=== PATIENT | female | born 1965 | race American Indian/Alaskan Native ===

== ENCOUNTER 2017-12-04 20:17 | Inpatient (IN) | payer OTHER ==
[2017-12-04 21:06] LABS: Hematocrit 33.6 % (30.3-42.9); Hemoglobin 10.9 gm/dl (10.1-14.3); Lymphocytes % (Auto) 24.3 % (13.4-35.0); Mean Corpuscular HGB Conc 33 % (30-34); Mean Corpuscular Hemoglobin 30 pg (28-32); Mean Corpuscular Volume 93 fl (79-97); Platelet Count 232 K/mm3 (140-440); Red Blood Count 3.62 M/mm3 (3.65-5.03)
[2017-12-04 21:07] LABS: Basophils # (Auto) 0.1 K/mm3 (0.0-0.1); Basophils % (Auto) 0.8 % (0.0-1.8); Eosinophils # (Auto) 0.2 K/mm3 (0.0-0.4); Eosinophils % (Auto) 2.5 % (0.0-4.3); Lymphocytes # (Auto) 1.5 K/mm3 (1.2-5.4); Monocytes # (Auto) 0.9 K/mm3 (0.0-0.8); Monocytes % (Auto) 14.4 % (0.0-7.3)
[2017-12-04 21:23] LABS: BUN/Creatinine Ratio 10; Blood Urea Nitrogen 9 mg/dL (7-17); Calcium 9.1 mg/dL (8.4-10.2); Hemolysis Index 18
[2017-12-04 22:05] LABS: Bacteria,Urine 1+ /HPF (Negative); Bilirubin,Urine NEG (Negative); Blood,Urine MOD (Negative); Color,Urine Yellow (Yellow); Mucus,Urine FEW /HPF; Nitrite,Urine NEG (Negative); Protein,Urine <15 mg/dL mg/dL (Negative); Urobilinogen,Urine < 2.0 mg/dL (<2.0); WBC,Urine < 1.0 /HPF (0.0-6.0)
[2017-12-04 22:10] LABS: Amphetamine Screen,Urine PRESUMPTIVE NEGATIVE; Cannabinoid Screen,Urine PRESUMPTIVE NEGATIVE; Cocaine Screen,Urine PRESUMPTIVE NEGATIVE; Opiate Screen,Urine PRESUMPTIVE NEGATIVE
[2017-12-04] MEDS ORDERED: NARCAN 0.4 MG/1 ML IV ONE (22:23)
[2017-12-04] MEDS ORDERED: NARCAN 0.4 MG/1 ML IV PRN (22:24)
[2017-12-04 22:29] LABS: Benzodiazepines Screen,Urine PRESUMPTIVE POSITIVE; Methadone Screen,Urine PRESUMPTIVE NEGATIVE
--- NOTE | 2017-12-04 22:31 | Emergency Department Report ---
History of Present Illness - General Chief Complaint: Overdose Stated Complaint: AMS/OD Time Seen by Provider: 12/04/17 21:39 Source: EMS Mode of arrival: Stretcher Limitations: Altered Mental Status - History of Present Illness Initial Comments: 52-year-old female with a past medical history of previous opiate overdoses in the past presents to the hospital with possible overdose. EMS found patient or only responsive to painful stimuli with a respiratory rate of 8. She was given intranasal Narcan 2 mg and became responsive to verbal and tactile stimulation by easy falls back to sleep with a respiratory rate of 16 upon arrival. Patient apparently was at [facility] 3 days ago for overdose of oxycodone. Mental health hatchery supervisor spoke to patient's sister who states she has a history of suicidal attempts in the past. Patient is drowsy and able to provide any history of present illness. Additional Narcan ordered - Related Data Home Medications Medication Instructions Recorded Confirmed Last Taken Oxymorphone HCl [Oxymorphone HCl 20 mg PO BID 03/16/14 07/05/16 Unknown ER] Baclofen 30 mg PO TID PRN 07/05/16 07/05/16 Unknown Citalopram Hydrobromide [celeXA] 30 mg PO QDAY 07/05/16 07/05/16 Unknown Gabapentin [Neurontin] 800 mg PO Q6H 07/05/16 07/05/16 Unknown Levothyroxine Sodium [Synthroid] 175 mcg PO QDAY 07/05/16 07/05/16 Unknown Meloxicam [Mobic] 7.5 mg PO QDAY 07/05/16 07/05/16 Unknown Temazepam 30 mg PO QHS 07/05/16 07/05/16 Unknown Allergies Allergy/AdvReac Type Severity Reaction Status Date / Time No Known Allergies Allergy Verified 07/05/16 20:27 ED Review of Systems ROS: Stated complaint: AMS/OD Other details as noted in HPI Comment: Unobtainable due to pts medical conditions ED Past Medical Hx - Past Medical History Hx Hypertension: Yes Hx Arthritis: Yes Hx Psychiatric Treatment: Yes (Depression) Additional medical history: Thyroid?; Back Problems - Social History Smoking Status: Current Every Day Smoker Substance Use Type: Alcohol - Medications Home Medications: Home Medications Medication Instructions Recorded Confirmed Last Taken Type Oxymorphone HCl [Oxymorphone HCl 20 mg PO BID 03/16/14 07/05/16 Unknown History ER] Baclofen 30 mg PO TID PRN 07/05/16 07/05/16 Unknown History Citalopram Hydrobromide [celeXA] 30 mg PO QDAY 07/05/16 07/05/16 Unknown History Gabapentin [Neurontin] 800 mg PO Q6H 07/05/16 07/05/16 Unknown History Levothyroxine Sodium [Synthroid] 175 mcg PO QDAY 07/05/16 07/05/16 Unknown History Meloxicam [Mobic] 7.5 mg PO QDAY 07/05/16 07/05/16 Unknown History Temazepam 30 mg PO QHS 07/05/16 07/05/16 Unknown History ED Physical Exam - General Limitations: Altered Mental Status - Other Other exam information: General: Lethargic Head exam: Atraumatic, normocephalic Eyes exam: Normal appearance, pupils equal reactive to light ENT: Moist mucous membrane Neck exam: Normal inspection Respiratory exam: Respiratory rate 78 Cardiovascular: Normal rate and rhythm, normal heart sounds Abdomen: Soft, nondistended, and nontender, with normal bowel sounds, no rebound, or guarding Extremity: Full range of motion normal inspection no deformity Back: Normal Inspection, full range of motion, no tenderness Neurologic: Obtunded, opens eyes to painful stimuli (sternal rub) but does not follow commands or was drawn to needle sticks. Psychiatric: normal affect, normal mood Skin: Warm, dry, intact ED Course Vital Signs 12/04/17 20:57 Temperature 98.2 F Pulse Rate 99 H Respiratory 16 Rate Blood Pressure 133/81 [Left] O2 Sat by Pulse 97 Oximetry - Reevaluation(s) Reevaluation #1: 12/04/17 23:20 additional narcan ordered and awaiting administration. . . EKg pending Reevaluation #2: 12/04/17 23:37 no response to narcan .4mg, repeat doses pending ED Medical Decision Making - Lab Data Result diagrams: 12/04/17 20:49 12/04/17 20:49 Lab Results 12/04/17 12/04/17 12/04/17 Range/Units 20:49 20:49 20:49 WBC (4.5-11.0) K/mm3 RBC (3.65-5.03) M/mm3 Hgb (10.1-14.3) gm/dl Hct (30.3-42.9) % MCV (79-97) fl MCH (28-32) pg MCHC (30-34) % RDW (13.2-15.2) % Plt Count (140-440) K/mm3 Lymph % (Auto) (13.4-35.0) % [place] % (Auto) (0.0-7.3) % Eos % (Auto) (0.0-4.3) % Baso % (Auto) (0.0-1.8) % Lymph # (1.2-5.4) K/mm3 [place] # (0.0-0.8) K/mm3 Eos # (0.0-0.4) K/mm3 Baso # (0.0-0.1) K/mm3 Seg Neutrophils % (40.0-70.0) % Seg Neutrophils # (1.8-7.7) K/mm3 Sodium 137 (137-145) mmol/L Potassium 2.8 L* (3.6-5.0) mmol/L Chloride 96.9 L (98-107) mmol/L Carbon Dioxide 25 (22-30) mmol/L Anion Gap 18 mmol/L BUN 9 (7-17) mg/dL Creatinine 0.9 (0.7-1.2) mg/dL Estimated GFR > 60 ml/min BUN/Creatinine Ratio 10 % Glucose 140 H (65-100) mg/dL Calcium 9.1 (8.4-10.2) mg/dL Magnesium (1.7-2.3) mg/dL Urine Color (Yellow) Urine Turbidity (Clear) Urine pH (5.0-7.0) Ur Specific [place] (1.003-1.030) Urine Protein (Negative) mg/dL Urine Glucose (UA) (Negative) mg/dL Urine Ketones (Negative) mg/dL Urine Blood (Negative) Urine Nitrite (Negative) Urine Bilirubin (Negative) Urine Urobilinogen (<2.0) mg/dL Ur Leukocyte Esterase (Negative) Urine WBC (Auto) (0.0-6.0) /HPF Urine RBC (Auto) (0.0-6.0) /HPF U Epithel Cells (Auto) (0-13.0) /HPF Urine Bacteria (Auto) (Negative) /HPF Urine Mucus /HPF Salicylates < 0.3 L (2.8-20.0) mg/dL Urine Opiates Screen Urine Methadone Screen Acetaminophen 15.0 (10.0-30.0) ug/mL Ur Barbiturates Screen Ur Phencyclidine Scrn Ur Amphetamines Screen U Benzodiazepines Scrn Urine Cocaine Screen U Marijuana (THC) Screen Drugs of Abuse Note Plasma/Serum Alcohol (0-0.07) % 12/04/17 12/04/17 12/04/17 Range/Units 20:49 20:49 21:47 WBC 6.2 (4.5-11.0) K/mm3 RBC 3.62 L (3.65-5.03) M/mm3 Hgb 10.9 (10.1-14.3) gm/dl Hct 33.6 (30.3-42.9) % MCV 93 (79-97) fl MCH 30 (28-32) pg MCHC 33 (30-34) % RDW 16.0 H (13.2-15.2) % Plt Count 232 (140-440) K/mm3 Lymph % (Auto) 24.3 (13.4-35.0) % [place] % (Auto) 14.4 H (0.0-7.3) % Eos % (Auto) 2.5 (0.0-4.3) % Baso % (Auto) 0.8 (0.0-1.8) % Lymph # 1.5 (1.2-5.4) K/mm3 [place] # 0.9 H (0.0-0.8) K/mm3 Eos # 0.2 (0.0-0.4) K/mm3 Baso # 0.1 (0.0-0.1) K/mm3 Seg Neutrophils % 58.0 (40.0-70.0) % Seg Neutrophils # 3.6 (1.8-7.7) K/mm3 Sodium (137-145) mmol/L Potassium (3.6-5.0) mmol/L Chloride (98-107) mmol/L Carbon Dioxide (22-30) mmol/L Anion Gap mmol/L BUN (7-17) mg/dL Creatinine (0.7-1.2) mg/dL Estimated GFR ml/min BUN/Creatinine Ratio % Glucose (65-100) mg/dL Calcium (8.4-10.2) mg/dL Magnesium (1.7-2.3) mg/dL Urine Color Yellow (Yellow) Urine Turbidity Clear (Clear) Urine pH 6.0 (5.0-7.0) Ur Specific [place] 1.017 (1.003-1.030) Urine Protein <15 mg/dl (Negative) mg/dL Urine Glucose (UA) Neg (Negative) mg/dL Urine Ketones Neg (Negative) mg/dL Urine Blood Mod (Negative) Urine Nitrite Neg (Negative) Urine Bilirubin Neg (Negative) Urine Urobilinogen < 2.0 (<2.0) mg/dL Ur Leukocyte Esterase Neg (Negative) Urine WBC (Auto) < 1.0 (0.0-6.0) /HPF Urine RBC (Auto) 2.0 (0.0-6.0) /HPF U Epithel Cells (Auto) < 1.0 (0-13.0) /HPF Urine Bacteria (Auto) 1+ (Negative) /HPF Urine Mucus Few /HPF Salicylates (2.8-20.0) mg/dL Urine Opiates Screen Urine Methadone Screen Acetaminophen (10.0-30.0) ug/mL Ur Barbiturates Screen Ur Phencyclidine Scrn Ur Amphetamines Screen U Benzodiazepines Scrn Urine Cocaine Screen U Marijuana (THC) Screen Drugs of Abuse Note Plasma/Serum Alcohol < 0.01 (0-0.07) % 12/04/17 12/04/17 Range/Units 21:47 21:57 WBC (4.5-11.0) K/mm3 RBC (3.65-5.03) M/mm3 Hgb (10.1-14.3) gm/dl Hct (30.3-42.9) % MCV (79-97) fl MCH (28-32) pg MCHC (30-34) % RDW (13.2-15.2) % Plt Count (140-440) K/mm3 Lymph % (Auto) (13.4-35.0) % [place] % (Auto) (0.0-7.3) % Eos % (Auto) (0.0-4.3) % Baso % (Auto) (0.0-1.8) % Lymph # (1.2-5.4) K/mm3 [place] # (0.0-0.8) K/mm3 Eos # (0.0-0.4) K/mm3 Baso # (0.0-0.1) K/mm3 Seg Neutrophils % (40.0-70.0) % Seg Neutrophils # (1.8-7.7) K/mm3 Sodium (137-145) mmol/L Potassium (3.6-5.0) mmol/L Chloride (98-107) mmol/L Carbon Dioxide (22-30) mmol/L Anion Gap mmol/L BUN (7-17) mg/dL Creatinine (0.7-1.2) mg/dL Estimated GFR ml/min BUN/Creatinine Ratio % Glucose (65-100) mg/dL Calcium (8.4-10.2) mg/dL Magnesium 2.20 (1.7-2.3) mg/dL Urine Color (Yellow) Urine Turbidity (Clear) Urine pH (5.0-7.0) Ur Specific [place] (1.003-1.030) Urine Protein (Negative) mg/dL Urine Glucose (UA) (Negative) mg/dL Urine Ketones (Negative) mg/dL Urine Blood (Negative) Urine Nitrite (Negative) Urine Bilirubin (Negative) Urine Urobilinogen (<2.0) mg/dL Ur Leukocyte Esterase (Negative) Urine WBC (Auto) (0.0-6.0) /HPF Urine RBC (Auto) (0.0-6.0) /HPF U Epithel Cells (Auto) (0-13.0) /HPF Urine Bacteria (Auto) (Negative) /HPF Urine Mucus /HPF Salicylates (2.8-20.0) mg/dL Urine Opiates Screen Presumptive negative Urine Methadone Screen Presumptive negative Acetaminophen (10.0-30.0) ug/mL Ur Barbiturates Screen Presumptive negative Ur Phencyclidine Scrn Presumptive negative Ur Amphetamines Screen Presumptive negative U Benzodiazepines Scrn Presumptive positive Urine Cocaine Screen Presumptive negative U Marijuana (THC) Screen Presumptive negative Drugs of Abuse Note Disclamer Plasma/Serum Alcohol (0-0.07) % - EKG Data -: EKG Interpreted by Al EKG shows normal: sinus rhythm, axis (16), QRS complexes (85), ST-T waves ( nospecific t abnl) Rate: normal (93) - EKG Data When compared to previous EKG there are: no significant change (04/24/13) - Radiology Data Radiology results: report reviewed (ct head: naf) - Medical Decision Making Altered mental status History of recent oxycodone overdose. UDS negative for opioids but positive for benzos and marijuana Patient did have response to Narcan in the field therefore opioid overdose still likely CT head without acute findings 1013 form based on sister's history Patient will be admitted due to persistent lethargy in the setting of possible intentional overdose - Differential Diagnosis accidental overdose, intentional overdose, ICH Critical Care Time: No Critical care attestation.: If time is entered above; I have spent that time in minutes in the direct care of this critically ill patient, excluding procedure time. ED Disposition Clinical Impression: Overdose, Hypokalemia Disposition: OP ADMIT IP TO THIS HOSP Is pt being admited?: Yes Condition: Stable Time of Disposition: 23:24 (Dr perdue/hosp)
--- NOTE | 2017-12-04 23:15 | Cat Scan Report ---
FINAL REPORT PROCEDURE: CT HEAD/BRAIN WO CON TECHNIQUE: Computerized tomography of the head was performed without contrast material. HISTORY: Altered mental status. Possible overdose COMPARISON: Prior CT scan of the brain 07/05/2016 FINDINGS: Brain: Brain density appears normal. No evidence of intracranial hemorrhage. No parenchymal hemorrhage, mass lesions or mass effect are seen. No abnormal extraxial fluid collects or masses are seen. Nonspecific mineralization of the basal ganglia again visualized. Ventricles: Ventricles are normal size and are midline. Bone Windows: No evidence of skull fracture. Paranasal sinuses: Visualized portions appear clear. Mastoid air cells: Clear IMPRESSION: Negative exam. No acute intracranial abnormalities are identified
[2017-12-04] MEDS ORDERED: KCL 10MEQ/100ML 10 MEQ/100 ML BAG IV SCH (23:45)
--- NOTE | 2017-12-04 23:57 | History and Physical Report ---
History of Present Illness Date of examination: 12/04/17 History of present illness: 52-year-old with a history of hypertension, depression, chronic pain was brought to the emergency room because she was found decrease responsiveness by family. She was given Narcan in the field and in the emergency room without much improvement. she seen at [facility] 3 days ago for overdose, the patient was discharged to home. Her review of system is unobtainable PAST MEDICAL HISTORY:hypertension, depression, chronic pain PAST SURGICAL HISTORY: Unknown FAMILY HISTORY:Unknown SOCIAL HISTORY:Unknown Medications and Allergies Allergies Allergy/AdvReac Type Severity Reaction Status Date / Time No Known Allergies Allergy Verified 07/05/16 20:27 Home Medications Medication Instructions Recorded Confirmed Last Taken Type Oxymorphone HCl [Oxymorphone HCl 20 mg PO BID 03/16/14 07/05/16 Unknown History ER] Baclofen 30 mg PO TID PRN 07/05/16 07/05/16 Unknown History Citalopram Hydrobromide [celeXA] 30 mg PO QDAY 07/05/16 07/05/16 Unknown History Gabapentin [Neurontin] 800 mg PO Q6H 07/05/16 07/05/16 Unknown History Levothyroxine Sodium [Synthroid] 175 mcg PO QDAY 07/05/16 07/05/16 Unknown History Meloxicam [Mobic] 7.5 mg PO QDAY 07/05/16 07/05/16 Unknown History Temazepam 30 mg PO QHS 07/05/16 07/05/16 Unknown History Active Meds: Active Medications Potassium Chloride 10 meq/ (Sodium Chloride) 105 mls @ 105 mls/hr IV Q1H NATHANIEL Stop: 12/05/17 03:44 Naloxone HCl (Narcan 0.4 Mg/1 Ml) 0.4 mg IV Q2MIN PRN PRN Reason: Res Rate </= 8 or 02 SAT < 92% Exam - Physical Exam Narrative exam: Gen. appearance: Patient lying in bed in no acute distress HEENT: Normocephalic/atraumatic, pupils equal round reactive to light, extra occular movement intact, no scleral icterus, no JVD or thyromegaly or nodule, neck is supple, mucous membrane moist, no erythema or exudate Heart: S1-S2, regular rate and rhythm Lungs: Clear to auscultation bilateral breathing comfortable Abdomen: Positive bowel sounds, nontender, nondistended, no organomegaly Extremities: No edema, cyanosis, clubbing Neuro:: Difficult to assess Skin: No rash, nodules, warm dry - Constitutional Vitals: Temp Pulse Resp BP Pulse Ox 98.2 F 99 H 16 133/81 97 12/04/17 20:57 12/04/17 20:57 12/04/17 20:57 12/04/17 20:57 12/04/17 20:57 Results - Labs CBC & Chem 7: 12/04/17 20:49 12/04/17 20:49 Labs: Abnormal lab results 12/04/17 12/04/17 12/04/17 Range/Units 20:49 20:49 20:49 RBC 3.62 L (3.65-5.03) M/mm3 RDW 16.0 H (13.2-15.2) % [place] % (Auto) 14.4 H (0.0-7.3) % [place] # 0.9 H (0.0-0.8) K/mm3 Potassium 2.8 L* (3.6-5.0) mmol/L Chloride 96.9 L (98-107) mmol/L Glucose 140 H (65-100) mg/dL Salicylates < 0.3 L (2.8-20.0) mg/dL - Imaging and Cardiology CT Scan - head: report reviewed Assessment and Plan Assessment Drug overdose, possible suicide Hypokalemia Depression Chronic pain Plan Admit to medicine Start IV fluids, consult site, monique Larios'zoey 1013 While potassium levels DVT prophylaxis
[2017-12-05] MEDS: KCL 10 MEQ in NACL 0.9% 100 ML IV SCH ×4 (01:10→05:27)
[2017-12-05] MEDS ORDERED: MILK OF MAGNESIA PO PRN (04:29)
[2017-12-05] MEDS ORDERED: DULCOLAX PR PRN (04:29)
[2017-12-05] MEDS ORDERED: ZOFRAN IV PRN (04:29)
[2017-12-05] MEDS ORDERED: ZOSYN/NS 4.5GM/100ML 4.5 GM/100 ML VIAL IV SCH (06:00)
[2017-12-05] MEDS ORDERED: BACLOFEN PO PRN (06:58)
[2017-12-05] MEDS ORDERED: NON-FORMULARY (Gabapentin [Neurontin] 800 MG) PO SCH (07:00)
[2017-12-05] MEDS ORDERED: LEVOTHYROXINE SODIUM 175 MCG PO SCH (10:00)
[2017-12-05] MEDS ORDERED: celeXA PO SCH (10:00)
[2017-12-05] MEDS ORDERED: LOVENOX SUB-Q SCH (10:00)
[2017-12-05] MEDS: LOVENOX SUB-Q SCH (10:59)
[2017-12-05] MEDS: celeXA PO SCH (10:59)
[2017-12-05] MEDS: NEURONTIN PO SCH ×3 (11:10→23:39)
[2017-12-05] MEDS: TYLENOL PO PRN (11:11)
[2017-12-05] MEDS: SYNTHROID PO SCH ×3 (12:42→13:22)
[2017-12-05 13:41] LABS: BUN/Creatinine Ratio 11; Blood Urea Nitrogen 8 mg/dL (7-17); Hemolysis Index 159
[2017-12-05] MEDS ORDERED: K-DUR PO ONE ×2 (14:33→18:00)
--- NOTE | 2017-12-05 14:33 | Progress Note ---
Assessment and Plan Toxic encephalopathy - mental status at baseline now - likely from narcotic overdose Drug overdose, possible suicidal attempt - place on 1013, consult psych - mental status at baseline now Hypokalemia - cont to replete and monitor Depression - resume home meds hypothyroidism - cont on synthroid Chronic pain - percocet as needed Brief history: 52-year-old with a history of depression, chronic pain was brought to the emergency room because she was noted with decrease responsiveness by family. She was given Narcan in the field and in the emergency room without much improvement. She seen at [facility] 3 days ago for overdose, the patient was discharged to home on last weekend. Subjective Date of service: 12/05/17 Interval history: pt seen and examined stated that she was hurting on her back more than usual and thats why she took couple extra pain pills discussed with her sister at bedside Objective - Constitutional General appearance: Present: no acute distress, well-nourished - EENT Eyes: PERRL, EOM intact ENT: hearing intact, clear oral mucosa Ears: bilateral: normal - Neck Neck: supple, normal ROM - Respiratory Respiratory effort: normal Respiratory: bilateral: CTA - Cardiovascular Rhythm: regular Heart Sounds: Present: S1 & S2. Absent: gallop, rub Extremities: pulses intact, No edema, normal color, Full ROM - Gastrointestinal General gastrointestinal: Present: soft, non-tender, non-distended, normal bowel sounds - Integumentary Integumentary: clear, warm, dry - Musculoskeletal Musculoskeletal: 1, strength equal bilaterally - Neurologic Neurologic: moves all extremities - Psychiatric Psychiatric: memory intact, appropriate mood/affect, intact judgment & insight - Labs CBC & Chem 7: 12/06/17 06:41 12/06/17 06:41 Labs: Abnormal lab results 12/04/17 12/04/17 12/04/17 Range/Units 20:49 20:49 20:49 RBC 3.62 L (3.65-5.03) M/mm3 RDW 16.0 H (13.2-15.2) % [place] % (Auto) 14.4 H (0.0-7.3) % [place] # 0.9 H (0.0-0.8) K/mm3 Potassium 2.8 L* (3.6-5.0) mmol/L Chloride 96.9 L (98-107) mmol/L Glucose 140 H (65-100) mg/dL Salicylates < 0.3 L (2.8-20.0) mg/dL 12/05/17 Range/Units 12:50 RBC (3.65-5.03) M/mm3 RDW (13.2-15.2) % [place] % (Auto) (0.0-7.3) % [place] # (0.0-0.8) K/mm3 Potassium 3.5 L D (3.6-5.0) mmol/L Chloride (98-107) mmol/L Glucose 155 H (65-100) mg/dL Salicylates (2.8-20.0) mg/dL
[2017-12-06] MEDS: SYNTHROID PO SCH ×2 (05:01)
[2017-12-06] MEDS: NEURONTIN PO SCH ×4 (05:03→23:03)
[2017-12-06] MEDS: TYLENOL PO PRN ×2 (05:03→14:12)
[2017-12-06 07:13] LABS: Basophils % (Auto) 0.6 % (0.0-1.8); Eosinophils # (Auto) 0.2 K/mm3 (0.0-0.4); Eosinophils % (Auto) 4.2 % (0.0-4.3); Hematocrit 31.9 % (30.3-42.9); Hemoglobin 10.7 gm/dl (10.1-14.3); Lymphocytes # (Auto) 1.8 K/mm3 (1.2-5.4); Lymphocytes % (Auto) 34.7 % (13.4-35.0); Mean Corpuscular HGB Conc 34 % (30-34); Mean Corpuscular Hemoglobin 31 pg (28-32); Mean Corpuscular Volume 91 fl (79-97); Monocytes # (Auto) 0.5 K/mm3 (0.0-0.8); Monocytes % (Auto) 9.7 % (0.0-7.3); Platelet Count 260 K/mm3 (140-440); Red Blood Count 3.51 M/mm3 (3.65-5.03); Red Cell Distribution Width 15.6 % (13.2-15.2)
[2017-12-06 07:33] LABS: BUN/Creatinine Ratio 14; Blood Urea Nitrogen 10 mg/dL (7-17); Calcium 8.5 mg/dL (8.4-10.2); Hemolysis Index 3
[2017-12-06] MEDS: LOVENOX SUB-Q SCH (10:13)
[2017-12-06] MEDS: celeXA PO SCH (10:13)
[2017-12-06] MEDS ORDERED: K-DUR PO SCH (15:00)
--- NOTE | 2017-12-06 16:35 | Progress Note ---
Assessment and Plan Toxic encephalopathy - mental status at baseline now - likely from narcotic overdose Drug overdose, possible suicidal attempt - place on 1013, consult psych - mental status at baseline now Hypokalemia - cont to replete and monitor Depression - resume home meds hypothyroidism - cont on synthroid Chronic pain - percocet as needed Disposition: per psych, patient is medically clear for discharge Brief history: 52-year-old with a history of depression, chronic pain was brought to the emergency room because she was noted with decrease responsiveness by family. She was given Narcan in the field and in the emergency room without much improvement. She seen at [facility] 3 days ago for overdose, the patient was discharged to home on last weekend. Subjective Date of service: 12/06/17 Interval history: pt seen and examined stated that she was hurting on her back more than usual and thats why she took couple extra pain pills patient denies any suicidal ideation, pain now controlled with as needed percocet Objective - Constitutional Vitals: Vital Signs - 12hr 12/06/17 08:50 O2 Sat by Pulse 100 Oximetry - Labs CBC & Chem 7: 12/06/17 06:41 12/07/17 05:30 Labs: Abnormal lab results 12/06/17 12/06/17 Range/Units 06:41 06:41 RBC 3.51 L (3.65-5.03) M/mm3 RDW 15.6 H (13.2-15.2) % [place] % (Auto) 9.7 H (0.0-7.3) % Potassium 3.0 L (3.6-5.0) mmol/L Glucose 110 H (65-100) mg/dL
[2017-12-06] MEDS: PERCOCET 5/325 PO PRN ×2 (17:07→23:03)
[2017-12-06] MEDS: K-DUR PO SCH (17:32)
[2017-12-07] MEDS: NEURONTIN PO SCH ×3 (05:30→18:02)
[2017-12-07] MEDS: PERCOCET 5/325 PO PRN ×3 (05:31→18:02)
[2017-12-07] MEDS: SYNTHROID PO SCH ×2 (05:31)
[2017-12-07] MEDS: NACL 0.9% 1000 ML 1,000 ML IV SCH (06:05)
[2017-12-07 06:31] LABS: BUN/Creatinine Ratio 13; Blood Urea Nitrogen 8 mg/dL (7-17); Calcium 8.8 mg/dL (8.4-10.2); Hemolysis Index 12
[2017-12-07] MEDS: celeXA PO SCH (11:15)
[2017-12-07] MEDS: LOVENOX SUB-Q SCH (11:15)
[2017-12-07] MEDS: K-DUR PO SCH (11:15)
--- NOTE | 2017-12-07 12:17 | Progress Note ---
Assessment and Plan Toxic encephalopathy - mental status at baseline now - likely from narcotic overdose Drug overdose, possible suicidal attempt - place on 1013, consult psych - mental status at baseline now - psych eval pending Hypokalemia - repleted and resolved Depression - resume home meds hypothyroidism - cont on synthroid Chronic pain - percocet as needed Disposition: per psych, patient is medically clear for discharge Brief history: 52-year-old with a history of depression, chronic pain was brought to the emergency room because she was noted with decrease responsiveness by family. She was given Narcan in the field and in the emergency room without much improvement. She seen at [facility] 3 days ago for overdose, the patient was discharged to home on last weekend. Subjective Date of service: 12/07/17 Interval history: pt seen and examined stated that she was hurting on her back more than usual and thats why she took couple extra pain pills patient denies any suicidal ideation, pain now controlled with as needed percocet psych eval pending, sitter in front of the room Objective - Constitutional Vitals: Vital Signs - 12hr 12/07/17 12/07/17 12/07/17 03:47 07:56 08:04 Temperature 98.7 F 98.8 F Pulse Rate 92 H 115 H 111 H Respiratory 18 16 Rate Blood Pressure 143/83 120/59 O2 Sat by Pulse 97 98 Oximetry - Labs CBC & Chem 7: 12/06/17 06:41 12/07/17 05:30 Labs: Abnormal lab results 12/07/17 Range/Units 05:30 Creatinine 0.6 L (0.7-1.2) mg/dL Glucose 123 H (65-100) mg/dL
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
[2017-12-07] MEDS: MINIPRESS PO SCH (22:51)
[2017-12-07] MEDS: DESYREL PO SCH (22:52)
[2017-12-08] MEDS: PERCOCET 5/325 PO PRN ×4 (00:23→17:40)
[2017-12-08] MEDS: NEURONTIN PO SCH ×4 (00:23→17:40)
[2017-12-08] MEDS: SYNTHROID PO SCH ×2 (06:00)
--- NOTE | 2017-12-08 09:00 | Progress Note ---
Assessment and Plan Toxic encephalopathy - mental status at baseline now - likely from narcotic overdose Drug overdose, possible suicidal attempt - place on 1013, consulted psych - mental status at baseline now Hypokalemia - repleted and resolved Depression with PTSD - Continue Celexa 30 mg PO daily for depression. Started on Prazosin 1 mg PO HS for PTSD symptoms and Trazodone 50 mg PO HS for sleep consolidation hypothyroidism - cont on synthroid Chronic pain - percocet as needed Pelvis pain - ordered pelvic xry Disposition: per psych, patient is medically clear for discharge Brief history: 52-year-old with a history of depression, chronic pain was brought to the emergency room because she was noted with decrease responsiveness by family. She was given Narcan in the field and in the emergency room without much improvement. She seen at [facility] 3 days ago for overdose, the patient was discharged to home on last weekend. Subjective Date of service: 12/08/17 Interval history: pt seen and examined patient denies any suicidal ideation, c/o pelvic pain psych eval pending, sitter in front of the room Objective - Constitutional Vitals: Vital Signs - 12hr 12/07/17 12/07/17 12/08/17 22:51 23:32 07:53 Temperature 98.4 F Pulse Rate 89 89 82 Respiratory 18 Rate Blood Pressure 115/73 111/61 O2 Sat by Pulse 98 99 Oximetry 12/08/17 07:56 Temperature Pulse Rate 83 Respiratory Rate Blood Pressure O2 Sat by Pulse 99 Oximetry - Labs CBC & Chem 7: 12/06/17 06:41 12/07/17 05:30
[2017-12-08] MEDS: celeXA PO SCH (10:40)
[2017-12-08] MEDS: LOVENOX SUB-Q SCH (10:41)
--- NOTE | 2017-12-08 11:38 | XRay Report ---
XRAY BILATERAL HIPS AND AP PELVIS THREE VIEWS: 12/08/17 09:00:00 CLINICAL: Bilateral hip pain FINDINGS: Right: No fracture or dislocation. Mild/moderate osteoarthritis with superior acetabular eburnation and a small superolateral osteophyte. Normal soft tissues. Left: No fracture or dislocation. Mild/moderate osteoarthritis with superior acetabular eburnation and a small superolateral osteophyte.Normal soft tissues. Bilateral SI joint sclerosis with no erosions.Pelvic phleboliths. Soft tissues are otherwise normal. IMPRESSION: Mild/moderate bilateral osteoarthritis of the hips.
[2017-12-08] MEDS: LIORESAL PO PRN (17:44)
--- NOTE | 2017-12-08 19:34 | Progress Note ---
Subjective - Reason for Consult Consult date: 12/08/17 Reason for consult: follow up - Chief Complaint Chief complaint: "I talked to my family." 52-year-old female with a past medical history of previous opiate overdoses in the past presents to the hospital with overdose. She admits taking more pain medication after she already took it. Today the patient is calm and cooperative during the assessment. She stated that she has a hx of depression and PTSD. She is adamant that she wasn't trying to kill herself. She denies any previous attempt of suicide in the past. The patient takes opioids and benzos back pain and anxiety. She denies SI/Hi's and AVH's. She denies side effects to prazosin and trazodone. She reports talking to her 1st cousin about her situation. She reports having the support of her cousin. Mental Status Exam - Vital signs Last Vital Signs Temp 98.8 F 12/08/17 14:59 Pulse 90 12/08/17 14:59 Resp 18 12/08/17 14:59 BP 117/79 12/08/17 14:59 Pulse Ox 99 12/08/17 14:59 - Exam Narrative exam: MSE: Appearance: calm, cooperative Behavior: regular eye contact Speech: regular rate and tone Mood: "okay" Affect: congruent to mood Thought Process: linear Thought Content: denies SI/HI's and AVH's Motor Activity: sitting up in bed Cognition: A/O x3 Insight: fair Judgment: fair Assessment and Plan Impression: Hx of depression and PTSD. Today the patient is calm and cooperative during the assessment. The patient denies SI's. Positive for benzos. She expresses appropriate insight. She expressed future and goal oriented thinking and planning. She talked about going to a different psychiatrist and NA meetings. Recommendation/Plan: Continue 1013 and consider rescinding if an appropriate aftercare plan is made for mental health treatment. Continue Celexa 30 mg PO daily for depression. Continue Prazosin 1 mg PO HS for PTSD symptoms and Trazodone 50 mg PO HS for sleep consolidation.
[2017-12-08] MEDS: DESYREL PO SCH (22:54)
[2017-12-08] MEDS: MINIPRESS PO SCH (22:55)
[2017-12-09] MEDS: PERCOCET 5/325 PO PRN ×4 (00:34→18:37)
[2017-12-09] MEDS: NEURONTIN PO SCH ×4 (00:35→18:36)
[2017-12-09] MEDS: AMBIEN PO PRN ×2 (00:38→21:25)
[2017-12-09] MEDS: NACL 0.9% 1000 ML 1,000 ML IV SCH (04:18)
[2017-12-09] MEDS: SYNTHROID PO SCH ×2 (06:54)
[2017-12-09] MEDS: LIORESAL PO PRN ×2 (09:23→18:37)
[2017-12-09] MEDS: celeXA PO SCH (09:23)
[2017-12-09] MEDS: LOVENOX SUB-Q SCH (09:24)
--- NOTE | 2017-12-09 12:25 | Progress Note ---
Assessment and Plan Toxic encephalopathy - mental status at baseline now - likely from narcotic overdose Drug overdose, possible suicidal attempt - place on 1013, consulted psych - mental status at baseline now Hypokalemia - repleted and resolved Depression with PTSD - Continue Celexa 30 mg PO daily for depression. Started on Prazosin 1 mg PO HS for PTSD symptoms and Trazodone 50 mg PO HS for sleep consolidation hypothyroidism - cont on synthroid Chronic pain - percocet as needed Pelvis pain, osteoarthritis - normal pelvic xry, Disposition: per psych, patient is medically clear for discharge Brief history: 52-year-old with a history of depression, chronic pain was brought to the emergency room because she was noted with decrease responsiveness by family. She was given Narcan in the field and in the emergency room without much improvement. She seen at [facility] 3 days ago for overdose, the patient was discharged to home on last weekend. Subjective Date of service: 12/09/17 Interval history: pt seen and examined patient denies any suicidal ideation, c/o pelvic pain has worsened today, but no fracture on XRY psych eval pending, sitter in front of the room Objective - Constitutional Vitals: Vital Signs - 12hr 12/09/17 07:17 Temperature 99.0 F Pulse Rate 98 H Respiratory 16 Rate Blood Pressure 141/80 O2 Sat by Pulse 94 Oximetry - Labs CBC & Chem 7: 12/06/17 06:41 12/07/17 05:30
--- NOTE | 2017-12-09 15:39 | XRay Report ---
FINAL REPORT PROCEDURE: XR HIPS BILAT 2V W/PELVIS TECHNIQUE: Bilateral hip radiographs, 2 views each, including AP view of the pelvis. HISTORY: pain COMPARISON: No prior studies are available for comparison. FINDINGS: Hip joints appear well preserved. No evidence of fracture or dislocation. Minimal arthritic change seen in the SI joints. Multiple small calcifications seen in the lower pelvis suggesting phleboliths. Prior lumbar fusion procedure partially visualized. Well-defined sclerotic density seen projecting over the right side of the sacrum suggesting a calcified lymph node or possibly a bone island or even at a calcified fibroid within the patient's uterus. This has a benign appearance IMPRESSION: Postsurgical changes lumbar spine partially visualize from prior fusion procedure. Hip joints are well preserved and unremarkable. Minimal degenerative changes SI joints. Benign-appearing calcifications seen projecting over the right side of the sacrum.
--- NOTE | 2017-12-09 16:23 | Progress Note ---
Subjective - Reason for Consult Consult date: 12/09/17 Reason for consult: follow up - Chief Complaint Chief complaint: "I'm ok." 52-year-old female with a past medical history of previous opiate overdoses in the past presents to the hospital with overdose. She admits taking more pain medication after she already took it. Today the patient is calm and cooperative during the assessment. She stated that she has a hx of depression and PTSD. She is adamant that she wasn't trying to kill herself. She denies any previous attempt of suicide in the past. The patient takes opioids and benzos back pain and anxiety. She denies SI/Hi's and AVH's. She denies side effects to prazosin and trazodone. She continues to express appropriate insight. She wants to participate in outpatient services. She reports seroquel causes sleep walking in her and will speak with her [place] psychiatrist to change it. Mental Status Exam - Vital signs Last Vital Signs Temp 99.0 F 12/09/17 07:17 Pulse 98 H 12/09/17 07:17 Resp 16 12/09/17 07:17 BP 141/80 12/09/17 07:17 Pulse Ox 94 12/09/17 07:17 - Exam Narrative exam: MSE: Appearance: calm, cooperative Behavior: regular eye contact Speech: regular rate and tone Mood: "okay" Affect: congruent to mood Thought Process: linear Thought Content: denies SI/HI's and AVH's Motor Activity: sitting up in bed Cognition: A/O x3 Insight: fair Judgment: fair Assessment and Plan Impression: Hx of depression and PTSD. Today the patient is calm and cooperative during the assessment. The patient denies SI's. Positive for benzos. She expresses appropriate insight. She expressed future and goal oriented thinking and planning. She talked about going to a different psychiatrist and NA meetings. Recommendation/Plan: Continue 1013 and consider rescinding if an appropriate aftercare plan is made for mental health treatment. Continue Celexa 30 mg PO daily for depression. Continue Prazosin 1 mg PO HS for PTSD symptoms and Trazodone 50 mg PO HS for sleep consolidation. Discuss home medication of seroquel with the outpatient psychiatrist at the [place]. She requests referrals to private psychiatrists. [facility] would be an option.
[2017-12-09] MEDS: MINIPRESS PO SCH (21:22)
[2017-12-09] MEDS: DESYREL PO SCH (21:25)
[2017-12-10] MEDS: NEURONTIN PO SCH ×4 (00:20→18:19)
[2017-12-10] MEDS: PERCOCET 5/325 PO PRN ×4 (00:28→19:01)
[2017-12-10] MEDS: SYNTHROID PO SCH ×2 (06:43→06:44)
[2017-12-10] MEDS: LOVENOX SUB-Q SCH (09:47)
[2017-12-10] MEDS: celeXA PO SCH (09:47)
--- NOTE | 2017-12-10 10:48 | Progress Note ---
Subjective - Reason for Consult Consult date: 12/10/17 Reason for consult: Psychiatry Follow-up - Chief Complaint Chief complaint: "Shar" 52-year-old female with a past medical history of previous opiate overdoses in the past presents to the hospital with overdose. She admits taking more pain medication after she already took it. Today the patient is calm and cooperative during the assessment. She stated that she want to continue with outpatient psy services when discharged. She denies SI/HI's and AVH's. She denies any side effects of her medications. Mental Status Exam - Vital signs Last Vital Signs Temp 99.7 F H 12/10/17 07:55 Pulse 92 H 12/10/17 07:55 Resp 16 12/10/17 07:55 BP 141/88 12/10/17 07:55 Pulse Ox 99 12/10/17 07:55 Assessment and Plan Impression: Hx of depression and PTSD. Today the patient is calm and cooperative during the assessment. The patient denies SI's. Positive for benzos. The patient is no threat to self. I. This screening and assessment is based on information collected from the following sources: II. SUICIDE RISK SCREENING (within last 30 days): A.) Suicidal thoughts/behaviors: None SUICIDE RISK ASSESSMENT III. FACTORS THAT INCREASE RISK: A.) Demographic and Substance Use Factors: None B.) Current/Recent Factors (within past 3 months): Psychosocial/Environmental Factors: None Physical Illness: Chronic Back Pain Cognitive/Psychological Factors: None C.) Historical Factors: None D.) Diagnostic/Symptom/Treatment Factors: None E.) Acute Risk Factor Severity (DESC; MILD/MOD/SEVERE): Mild Other factors for this individual that increase risk: None IV. FACTORS THAT DECREASE RISK: Resilience/Protective Factors: Patient want her pain managed Other factors for this individual that decrease risk: Patient denies a desire to harm self V. Clinician's Formulation of Risk and Determination of level of Care: This is a 52-year-old AA female who took multiple pills unintentionally per the patient. This is the patient's second admission for possible overdose within 3 weeks. She is adamant that she did not try to kill herself on either admission. She admitted that she need to purchase a pill organized and discuss with her psychiatrist at the [place] that she cannot tolerate Seroquel. She stated that she will follow-up with outpatient services once discharged. Since being hospitalized the patient has consistently denied the desire to harm herself. Additionally, she has become insightful about how to better address her issues. Patient is not impaired by substance. She is able to take care of her ADLs and is not at imminent risk of harm to self or others. Consequently, it is the opinion of the treatment team that the patient is at low risk of suicide and does not meet criteria to continue an involuntary psychiatric hold. Estimation of Imminent Risk: Low due to the above explanation. Determination of Level of Care based on Suicide Risk: Outpatient follow-up. Narrative description of clinical reasoning. (This must be completed on all patients): . Plan and Interventions based on Suicide Risk: This patient will likely be stepped down to an outpatient mental health center in the community upon discharge and follow-up within 7 days of her discharge from the hospital. VII. Discharge/After Hours Support Plan: Patient can return back to the ER, call 911 or crisis line if symptoms of depression, anxiety, suicidality return. Recommendation/Plan: Rsecind 1013. Continue Celexa 30 mg PO daily for depression , Prazosin 1 mg PO HS for PTSD symptoms, and Trazodone 50 mg PO HS for sleep consolidation. Discussed possible suicidality/medication induced prabha with patient references antidepressants. Discussed with patient the importance to take medication as prescribed. Advised patient to purchase a pill organizer when discharged. The patient can follow up with her current psychiatrist at the [place] or [facility] for outpatient psy services. Also, she has been accepted at [facility]
--- NOTE | 2017-12-10 18:13 | Discharge Summary ---
Providers - Providers Date of Admission: 12/04/17 23:57 Date of discharge: 12/10/17 Attending physician: ARISTIDES GARY 12/05/17 04:29 Consult to Mental Health [CONS] Routine Reason For Exam: drug od, possibe SI Place consult to:: PSYCH Notified:: Luzmaria STANTON Phone number called:: Ext. [phone] Was contact made?: Yes If yes, spoke with:: [place] Time called:: 08:23 Primary care physician: EARLINE ZAMBRANO Hospitalization Condition: Stable Hospital course: Brief history: 52-year-old with a history of depression, chronic pain was brought to the emergency room because she was noted with decrease responsiveness by family. She was given Narcan in the field and in the emergency room without much improvement. She seen at [facility] 3 days ago for overdose, the patient was discharged to home on last weekend. Discharge Diagnosis and management: Toxic encephalopathy - mental status at baseline now - likely from narcotic overdose Drug overdose, possible suicidal attempt - place on 1013, consulted psych - mental status at baseline now Hypokalemia - repleted and resolved Depression with PTSD - Continue Celexa 30 mg PO daily for depression. Started on Prazosin 1 mg PO HS for PTSD symptoms and Trazodone 50 mg PO HS for sleep consolidation. Seen by psych and discussed possible suicidality/medication induced prabha with patient references antidepressants. Discussed with patient the importance to take medication as prescribed. Advised patient to purchase a pill organizer when discharged. The patient can follow up with her current psychiatrist at the [place] or [facility] for outpatient psy services. Also, she has been accepted at [facility]) hypothyroidism - cont on synthroid Chronic pain - percocet as needed Pelvis pain, osteoarthritis - normal pelvic xry, Disposition: per psych, patient is medically clear for discharge Disposition: DC-01 TO HOME OR SELFCARE Time spent for discharge: 32 minutes Exam - Constitutional Vitals: Temp Pulse Resp BP Pulse Ox 99.7 F H 92 H 16 141/88 99 12/10/17 07:55 12/10/17 07:55 12/10/17 07:55 12/10/17 07:55 12/10/17 07:55 Plan Activity: advance as tolerated Weight Bearing Status: Weight Bear as Tolerated Diet: low fat, low salt Follow up with: EARLINE ZAMBRANO MD [Primary Care Provider] - 7 Days Prescriptions: traZODone [Desyrel] 50 mg PO QHS #7 tablet
[2017-12-10] MEDS ORDERED: APRESOLINE IV ONE (18:35)
[2017-12-10 20:44] VITALS: BP 126/81
== END 2017-12-10 22:05 | disposition home or self-care (01) | DRG 917 ==
LOC: ED 20:17 → 4A 23:57 → 3A 12-07 16:43
PROVIDERS: ADMIT Internal Medicine; ATTEND Internal Medicine
DX: T40.602A Poisoning by unspecified narcotics, intentional self-harm, initial encounter (principal); G92 Toxic encephalopathy; E87.6 Hypokalemia; F32.9 Major depressive disorder, single episode, unspecified; G89.29 Other chronic pain; F43.10 Post-traumatic stress disorder, unspecified; E03.9 Hypothyroidism, unspecified; M19.90 Unspecified osteoarthritis, unspecified site; F17.200 Nicotine dependence, unspecified, uncomplicated; Y92.89 Other specified places as the place of occurrence of the external cause; Z79.899 Other long term (current) drug therapy; Z72.89 Other problems related to lifestyle
CPT/HCPCS: 36415; 70450; 73521; 80048; 80307; 80320; 81001; 83735; 84133; 85025; 93005; 93010; 96374; 99406; G0480; J0360; J1650; J2310; J3480; J7030